=== PATIENT | male | born 1990 | race Caucasian/White ===

== ENCOUNTER → 2018-12-21 | Outpatient (CLI) | payer MEDICAID ==
--- NOTE | 2018-12-22 08:06 | REP ---
REASON: Pain after trauma. PRIORS: None. FINDINGS: No acute fracture or destructive osseous lesion. There is a tiny flake-like radiodensity seen in the lateral soft tissues of the second digit at the level of the proximal interphalangeal joint. This measures approximately 1 mm. Electronically Signed by Lul Ji DO 12/22/2018 03:42 P
== END ==
LOC: M LRY 18:58
PROVIDERS: ATTEND Physician Assistant
DX: S69.92XA Unspecified injury of left wrist, hand and finger(s), initial encounter (principal); M79.5 Residual foreign body in soft tissue; X58.XXXA Exposure to other specified factors, initial encounter; Y92.9 Unspecified place or not applicable